=== PATIENT | female | born 1995 | race Caucasian/White ===

== ENCOUNTER 2018-01-10 12:16 | Emergency (ER) | payer SELFPAY ==
[2018-01-10] MEDS ORDERED: DEXAMETHASONE 10 MG/ML VIAL ONE (14:33)
[2018-01-10] MEDS ORDERED: NA CHLORIDE 0.9% 1,000 ML ONE (14:34)
[2018-01-10] MEDS ORDERED: IBUPROFEN 200 MG TAB PO ONE (14:51)
[2018-01-10] MEDS ORDERED: IBUPROFEN 400 MG TAB ONE (14:51)
[2018-01-10 14:52] LABS: Absolute Lymphocytes (CBC) 1.1 K/uL (0.7-4.9); Absolute Monocytes 0.7 K/uL (0.1-1.3); Absolute Neutrophil 3.2 K/uL (1.8-8.0); Basophils % 0.2 % (0-1.3); Hematocrit 40.5 % (36.0-45.0); Lymphocytes % 22.6 % (15.3-44.8); MCH 29.1 pg (27.0-35.0); MCV 88.9 fL (80-100); MPV 8.5 fL (7.6-11.3); Monocytes % 13.2 % (3.3-12.3); RBC Red Blood Cell Count 4.56 M/uL (3.86-4.86)
[2018-01-10 15:12] LABS: Albumin 3.6 g/dL (3.4-5.0); Bilirubin Total 0.4 mg/dL (0.2-1.0); Potassium 3.3 mmol/L (3.5-5.1); Protein, Total 8.1 g/dL (6.4-8.2)
[2018-01-10] MEDS ORDERED: AMOXICILLIN TRIHYDR 250 MG CAP ONE (16:14)
--- NOTE | 2018-01-10 16:29 | ER ---
Nurse's Notes [facility] Name: Liliana Conklin Age: 22 yrs Sex: Female : 1995 Arrival Date: 01/10/2018 Time: 12:19 Bed 22 Private MD: None, None Diagnosis: Acute pharyngitis Presentation: 01/10 12:22 Presenting complaint: Patient states: dizziness, vomiting, sore throat, fever Tmax sv 103.1 started Saturday. Transition of care: patient was not received from another setting of care. Onset of symptoms was January 04, 2018. Risk Assessment: Do you want to hurt yourself or someone else? Patient reports no desire to harm self or others. Care prior to arrival: None. 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 - Social history:: Smoking status: Patient/guardian denies using tobacco. - Ebola Screening: : No symptoms or risks identified at this time. Screenin:23 Abuse screen: Denies threats or abuse. Nutritional screening: No deficits noted. tl3 Tuberculosis screening: No symptoms or risk factors identified. Fall Risk None identified. Assessment: 13:23 General: Appears uncomfortable, well groomed, well developed, well nourished, Behavior tl3 is calm, cooperative, appropriate for age. Pain: Complains of pain in sore throat Pain currently is 9 out of 10 on a pain scale. Neuro: Level of Consciousness is awake, alert, obeys commands, Oriented to person, place, time, situation, Appropriate for age. Cardiovascular: Patient's skin is warm and dry. Respiratory: Airway is patent Respiratory effort is even, unlabored, Respiratory pattern is regular, symmetrical, Breath sounds are clear bilaterally. GI: No signs and/or symptoms were reported involving the gastrointestinal system. : No signs and/or symptoms were reported regarding the genitourinary system. EENT: Throat is reddened has patchy exudate. Derm: No signs and/or symptoms reported regarding the dermatologic system. Musculoskeletal: No signs and/or symptoms reported regarding the musculoskeletal system. 13:26 EENT: pt was seen Saturday at another facility, strep negative, labs within normal tl3 limits, received 2 liters of fluid fever has been ongoing for the last five days, t-max 104.8 on Saturday. 14:53 Reassessment: Patient appears in no apparent distress at this time. No changes from tl3 previously documented assessment. Patient and/or family updated on plan of care and expected duration. Pain level reassessed. Patient is alert, oriented x 3, equal unlabored respirations, skin warm/dry/pink. mom at bedside, no needs at this time. 16:17 Reassessment: Patient appears in no apparent distress at this time. No changes from tl3 previously documented assessment. Patient and/or family updated on plan of care and expected duration. Pain level reassessed. Patient is alert, oriented x 3, equal unlabored respirations, skin warm/dry/pink. pt states that she is feeling much better. 16:45 Reassessment: Patient appears in no apparent distress at this time. No changes from tl3 previously documented assessment. Patient and/or family updated on plan of care and expected duration. Pain level reassessed. Patient is alert, oriented x 3, equal unlabored respirations, skin warm/dry/pink. Vital Signs: 12:23 BP 126 / 80; Pulse 112; Resp 18; Temp 99.4(O); Pulse Ox 98% ; Weight 72.12 kg; Height 5 sv ft. 3 in. (160.02 cm); 14:53 BP 113 / 69; Pulse 68; Resp 18; Temp 99.9(O); Pulse Ox 100% ; tl3 16:17 BP 113 / 69; Pulse 97; Resp 16; Pulse Ox 99% ; tl3 16:45 BP 114 / 60; Pulse 90; Resp 18; Pulse Ox 100% ; tl3 12:23 Body Mass Index 28.17 (72.12 kg, 160.02 cm) sv ED Course: 12:19 Patient arrived in ED. mr 12:20 None, None is Private Physician. mr 12:23 Triage completed. sv 12:25 Arm band placed on right wrist. sv 12:26 Patient placed in waiting room. sv 12:30 Strep swab sent to lab. 3 13:12 Teri Mukherjee, NICCI is Primary Nurse. tl3 13:15 Jaxon Degroot PA is PHCP. [facility] 13:15 Carlos Eduardo Brar MD is Attending Physician. [facility] 13:23 Patient has correct armband on for positive identification. Bed in low position. Side tl3 rails up X 1. Adult w/ patient. 13:23 No provider procedures requiring assistance completed. tl3 14:46 Throat Culture Sent. tl3 16:29 Deepthi Neumann MD is Referral Physician. [facility] Administered Medications: 14:46 Drug: NS 0.9% 1000 ml Route: IV; Rate: 1 bolus; Site: left forearm; Delivery: Primary tl3 tubing; 16:19 Follow up: IV Status: Completed infusion; IV Intake: 1000ml tl3 14:46 Drug: Decadron - Dexamethasone 10 mg Route: IVP; Site: left forearm; tl3 16:19 Follow up: Response: No adverse reaction tl3 14:47 Drug: Motrin 600 mg Route: PO; tl3 16:18 Follow up: Response: No adverse reaction; Temperature is decreased tl3 16:15 Drug: Amoxicillin 1 grams Route: PO; tl3 16:46 Follow up: Response: No adverse reaction tl3 Intake: 16:19 IV: 1000ml; Total: 1000ml. tl3 Outcome: 16:29 Discharge ordered by . yara 16:46 Patient left the ED. tl3 Signatures: Deepthi Bazan, RN RN Jaxon Degroot PA PA [facility] MorleyGeno henry [facility] Teri Mukherjee, RN RN tl3 Corrections: (The following items were deleted from the chart) 16:15 16:15 Amoxicillin 875 mg PO tl3 tl3
--- NOTE | 2018-01-10 16:29 | EDPHYS ---
Physician Documentation [facility] Name: Liliana Conklin Age: 22 yrs Sex: Female : 1995 Arrival Date: 01/10/2018 Time: 12:19 Bed 22 Private MD: None, None ED Physician Carlos Eduardo Brar HPI: 01/10 14:27 This 22 yrs old Female presents to ER via Ambulatory with complaints of [facility] Fever, Sore Throat, Dizziness. 14:27 The patient presents with sore throat. [facility] 14:27 Patient states she developed sore throat, vomiting, and dizziness beginning this past [facility] Saturday. Patient was diagnosed with a viral pharyngitis at [place] [facility]. The patient is currently not on antibiotics. Patient admits to oral sex put states it is protected. Patient states vomiting a dizziness is due to pain. . 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 - Social history:: Smoking status: Patient/guardian denies using tobacco. - Ebola Screening: : No symptoms or risks identified at this time. ROS: 14:27 Eyes: Negative for injury, pain, redness, and discharge, Cardiovascular: Negative for jmm chest pain, palpitations, and edema, Respiratory: Negative for shortness of breath, cough, wheezing, and pleuritic chest pain. 14:27 Skin: Negative for injury, rash, and discoloration. 14:27 Constitutional: Positive for fever. 14:27 Abdomen/GI: Positive for vomiting. 14:27 Neuro: Positive for dizziness. 14:27 All other systems are negative. Exam: 14:27 Head/Face: atraumatic. Chest/axilla: Normal chest wall appearance and motion. jmm Nontender with no deformity. No lesions are appreciated. Cardiovascular: Regular rate and rhythm. No gallops, murmurs, or rubs. Full/Equal distal pulses. Respiratory: Lungs have equal breath sounds bilaterally, clear to auscultation. No rales, rhonchi or wheezes noted. No increased work of breathing, no retractions or nasal flaring. 14:27 Constitutional: The patient appears alert, awake, anxious, uncomfortable. 14:27 ENT: Posterior pharynx: Uvula: midline, erythema, that is moderate, exudate, that is moderate, peritonsillar mass, is not appreciated. 14:27 Neck: ROM/movement: is normal. 14:27 Cardiovascular: Rate: normal, Rhythm: regular. 14:27 Respiratory: the patient does not display signs of respiratory distress, Respirations: normal, Breath sounds: are clear throughout. 14:27 Abdomen/GI: Inspection: abdomen appears normal, Bowel sounds: normal, Palpation: abdomen is soft and non-tender, in all quadrants. 14:27 Back: ROM is normal. 14:27 Musculoskeletal/extremity: ROM: intact in all extremities. 14:27 Skin: Appearance: Color: normal in color. 14:27 Neuro: Orientation: is normal, Mentation: is normal, Memory: is normal. 14:27 Psych: Behavior/mood is pleasant, cooperative. Vital Signs: 12:23 BP 126 / 80; Pulse 112; Resp 18; Temp 99.4(O); Pulse Ox 98% ; Weight 72.12 kg; Height 5 sv ft. 3 in. (160.02 cm); 14:53 BP 113 / 69; Pulse 68; Resp 18; Temp 99.9(O); Pulse Ox 100% ; tl3 16:17 BP 113 / 69; Pulse 97; Resp 16; Pulse Ox 99% ; tl3 16:45 BP 114 / 60; Pulse 90; Resp 18; Pulse Ox 100% ; tl3 12:23 Body Mass Index 28.17 (72.12 kg, 160.02 cm) sv MDM: 14:26 Patient medically screened. [facility] 16:14 Data reviewed: vital signs, nurses notes, lab test result(s). [facility] 16:15 Counseling: I had a detailed discussion with the patient and/or guardian regarding: the [facility] historical points, exam findings, and any diagnostic results supporting the discharge/admit diagnosis, the presence of at least one elevated blood pressure reading (>120/80) during this emergency department visit, lab results, the need for outpatient follow up, to return to the emergency department if symptoms worsen or persist or if there are any questions or concerns that arise at home. Response to treatment: the patient's symptoms have resolved after treatment. ED course: Patient symptoms are relieved in the ED. 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 Advised to follow up with ENT for further evaluation. Otherwise given strict return precautions. . 01/10 12:25 Order name: Strep; Complete Time: 13:54 sv 01/10 12:47 Order name: Throat Culture [facility] 01/10 14:27 Order name: CBC with Diff; Complete Time: 14:55 [facility] 01/10 14:27 Order name: CMP; Complete Time: 15:38 [facility] 01/10 14:27 Order name: [place] Screen Profile; Complete Time: 15:38 [facility] Administered Medications: 14:46 Drug: NS 0.9% 1000 ml Route: IV; Rate: 1 bolus; Site: left forearm; Delivery: Primary tl3 tubing; 16:19 Follow up: IV Status: Completed infusion; IV Intake: 1000ml tl3 14:46 Drug: Decadron - Dexamethasone 10 mg Route: IVP; Site: left forearm; tl3 16:19 Follow up: Response: No adverse reaction tl3 14:47 Drug: Motrin 600 mg Route: PO; tl3 16:18 Follow up: Response: No adverse reaction; Temperature is decreased tl3 16:15 Drug: Amoxicillin 1 grams Route: PO; tl3 16:46 Follow up: Response: No adverse reaction tl3 Disposition: 18:36 Co-signature as Attending Physician, Carlos Eduardo Brar MD. rn Disposition: 01/10/18 16:29 Discharged to Home. Impression: Acute pharyngitis. - Condition is Stable. - Discharge Instructions: Pharyngitis. - Prescriptions for Amoxicillin 875 mg Oral Tablet - take 1 tablet by ORAL route every 12 hours for 10 days; 20 tablet. Tylenol- Codeine #3 300-30 mg Oral Tablet - take 1 tablet by ORAL route every 6 hours As needed; 12 tablet. - Medication Reconciliation Form, Thank You Letter, Antibiotic Education, Prescription Opioid Use form. - Follow up: Deepthi Neumann MD; When: 2 - 3 days; Reason: Continuance of care. Signatures: Dispatcher [employer] Deepthi Lewis, RN Jaxon Rapp PA PA Carlos Eduardo Woods MD MD rn Lowrey, Tammy, RN RN tl3 Corrections: (The following items were deleted from the chart) 16:46 16:29 01/10/2018 16:29 Discharged to Home. Impression: Acute pharyngitis. Condition is tl3 Stable. Forms are Medication Reconciliation Form, Thank You Letter, Antibiotic Education, Prescription Opioid Use. Follow up: Deepthi Neumann; When: 2 - 3 days; Reason: Continuance of care. yara
== END 2018-01-10 16:46 | disposition home or self-care (01) ==
LOC: ER 12:16
DX: J02.9 Acute pharyngitis, unspecified (principal)
CPT/HCPCS: 36415; 80053; 85025; 86308; 87070; 87081; 96361; 96374; 99283; J1100; J7030

== ENCOUNTER 2022-06-12 22:45 | Emergency (ER) | payer SELFPAY ==
--- OUTSIDE RECORDS SUMMARY | 2022-06-12 22:47 | XMS REPORT | Continuity of Care Document ---
:1995 Author Organization [facility] t Address [facility] [place] [address] [place] [id number] Care Team Providers Name Role Phone Unavailable Unavailable Unavailable Problems This patient has no known problems. Allergies, Adverse Reactions, Alerts This patient has no known allergies or adverse reactions. Medications This patient has no known medications. Procedures This patient has no known procedures. Results This patient has no known results.
[2022-06-13 00:25] LABS: SARS-COV-2 RT PCR NEGATIVE (NEGATIVE)
--- NOTE | 2022-06-13 00:37 | ER ---
Nurse's Notes [facility] Name: Liliana Ross Age: 26 yrs Sex: Female : 1995 Arrival Date: 06/12/2022 Time: 22:50 Bed 4 Private MD: Diagnosis: Influenza due to identified novel influenza A virus Presentation: 06/12 23:11 Chief complaint: Patient states: Pt reports cough, sore throat, chills x2 days. kb3 Coronavirus screen: Vaccine status: Patient reports being unvaccinated. Client denies travel out of the [place] in the last 14 days. Ebola Screen: Patient negative for fever greater than or equal to 101.5 degrees Fahrenheit, and additional compatible Ebola Virus Disease symptoms Patient denies exposure to infectious person. Patient denies travel to an Ebola-affected area in the 21 days before illness onset. Initial Sepsis Screen: Does the patient meet any 2 criteria? No. Patient's initial sepsis screen is negative. Does the patient have a suspected source of infection? No. Patient's initial sepsis screen is negative. Risk Assessment: Do you want to hurt yourself or someone else? Patient reports no desire to harm self or others. Onset of symptoms was June 10, 2022. 23:11 Method Of Arrival: Ambulatory 3 23:11 Acuity: TAVIA 4 kb3 Triage Assessment: 23:12 General: Appears in no apparent distress. Behavior is calm, cooperative. Pain: kb3 Complains of pain in uvula, left aspect of posterior pharynx and right aspect of posterior pharynx Pain does not radiate. 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 Last tetanus immunization: unknown. - Social history:: Smoking status: Patient denies any tobacco usage or history of. Screenin:33 Abuse screen: Denies threats or abuse. Denies injuries from another. Nutritional ll3 screening: No deficits noted. Tuberculosis screening: No symptoms or risk factors identified. Fall Risk None identified. Assessment: 23:32 General: Appears comfortable, Behavior is calm, cooperative. Pain: Complains of pain in ll3 right aspect of posterior pharynx and left aspect of posterior pharynx Pain does not radiate. Pain currently is 5 out of 10 on a pain scale. Is continuous. Respiratory: Airway is patent Respiratory effort is even, unlabored, Respiratory pattern is regular, symmetrical, Breath sounds are clear bilaterally. Respiratory: Reports cough that is. EENT: Throat is pink. EENT: Reports pain when swallowing. Derm: Skin is pink, warm \T\ dry. Vital Signs: 23:11 BP 131 / 78; Pulse 84; Resp 20; Temp 98.3; Pulse Ox 97% ; Weight 88 kg; Height 5 ft. 4 kb3 in. (162.56 cm); Pain 7/10; 23:11 Body Mass Index 33.30 (88.00 kg, 162.56 cm) kb3 ED Course: 22:50 Patient arrived in ED. ag3 23:02 Cholo Reyes PA is PHCP. cp 23:02 Cholo Whitley MD is Attending Physician. cp 23:12 Triage completed. kb3 23:12 Arm band placed on right wrist. kb3 23:33 Patient has correct armband on for positive identification. Bed in low position. Call ll3 light in reach. Side rails up X 1. 23:33 No provider procedures requiring assistance completed. ll3 [id number] 00:54 Danii Vazquez, RN is Primary Nurse. vc1 00:57 Patient did not have IV access during this emergency room visit. vc1 Administered Medications: 00:54 Drug: Tamiflu (oseltamivir) 75 mg Route: PO; vc1 00:54 Follow up: Response: No adverse reaction; Medication administered at discharge. vc1 Medication: 00:57 VIS not applicable for this client. vc1 Outcome: 00:37 Discharge ordered by . cp 00:57 Discharged to home ambulatory, with friend. vc1 00:57 Condition: good 00:57 Discharge instructions given to patient, Instructed on discharge instructions, follow up and referral plans. medication usage, Demonstrated understanding of instructions, follow-up care, medications, Prescriptions given X 3. 00:57 Patient left the ED. vc1 Signatures: Cholo Reyes PA PA cp Gomez, Alice ag3 Graham Argueta RN RN ll3 Danii Vazquez, RN RN vc1 Ayaz, Lizeth, RN RN kb3
--- NOTE | 2022-06-13 00:37 | EDPHYS ---
Physician Documentation [facility] Name: Liliana Ross Age: 26 yrs Sex: Female : 1995 Arrival Date: 06/12/2022 Time: 22:50 Bed 4 Private MD: MARI Physician Cholo Whitley HPI: 06/12 23:30 This 26 yrs old Female presents to ER via Ambulatory with complaints of Cough, Sore cp Throat. 23:30 The patient or guardian reports cough, that is intermittent. Onset: The cp symptoms/episode began/occurred 2 day(s) ago. Associated signs and symptoms: Pertinent positives: sore throat, Pertinent negatives: diarrhea, fever, vomiting. 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 Last tetanus immunization: unknown. - Social history:: Smoking status: Patient denies any tobacco usage or history of. ROS: 23:35 Constitutional: Positive for chills, Negative for fever. cp 23:35 Eyes: Negative for injury, pain, redness, and discharge. cp 23:35 ENT: Positive for sore throat, Negative for drainage from ear(s), ear pain, difficulty swallowing, difficulty handling secretions. 23:35 Respiratory: Positive for cough, with no reported sputum, Negative for shortness of breath, wheezing. 23:35 Abdomen/GI: Negative for vomiting, diarrhea, constipation. 23:35 Skin: Negative for rash. 23:35 Neuro: Negative for altered mental status, headache, weakness. 23:35 All other systems are negative. Exam: 23:38 Constitutional: The patient appears in no acute distress, alert, awake, non-toxic, well cp developed, well nourished. 23:38 Head/Face: Normocephalic, atraumatic. cp 23:38 Eyes: Periorbital structures: appear normal, Conjunctiva: normal, no exudate, no injection, Sclera: no appreciated abnormality, Lids and lashes: appear normal, bilaterally. 23:38 ENT: External ear(s): are unremarkable, Ear canal(s): are normal, clear, TM's: dullness, bilaterally, Nose: is normal, Mouth: Lips: moist, Oral mucosa: moist, Posterior pharynx: Airway: no evidence of obstruction, patent, Tonsils: with erythema, no enlargement, no exudate, erythema, that is mild, exudate, is not appreciated. 23:38 Neck: ROM/movement: is normal, is supple, without pain, no range of motions limitations, no meningismus, Lymph nodes: no appreciated lymphadenopathy. 23:38 Chest/axilla: Inspection: normal. 23:38 Cardiovascular: Rate: normal, Rhythm: regular. 23:38 Respiratory: the patient does not display signs of respiratory distress, Respirations: normal, no use of accessory muscles, no retractions, labored breathing, is not present, Breath sounds: are clear throughout, no decreased breath sounds, no stridor, no wheezing. 23:38 Abdomen/GI: Exam negative for discomfort, distension, guarding, Inspection: abdomen appears normal. 23:38 Skin: no rash present. Vital Signs: 23:11 BP 131 / 78; Pulse 84; Resp 20; Temp 98.3; Pulse Ox 97% ; Weight 88 kg; Height 5 ft. 4 kb3 in. (162.56 cm); Pain 7/10; 23:11 Body Mass Index 33.30 (88.00 kg, 162.56 cm) kb3 MDM: 23:10 Patient medically screened. [facility] 06/13 00:00 Differential Diagnosis: Bronchitis Influenza Pharyngitis Otitis Media Viral Syndrome cp Pneumonia. 00:36 Data reviewed: vital signs, nurses notes, lab test result(s). 00:36 Counseling: I had a detailed discussion with the patient and/or guardian regarding: the historical points, exam findings, and any diagnostic results supporting the discharge/admit diagnosis, lab results, to return to the emergency department if symptoms worsen or persist or if there are any questions or concerns that arise at home. 06/12 23:16 Order name: Strep; Complete Time: 00:33 cp 06/12 23:16 Order name: COVID-19/FLU A+B; Complete Time: 00:33 06/13 00:33 Interpretation: Normal except: INFLUENZA A POSITIVE. 06/13 00:24 Order name: Throat Culture EDMS Administered Medications: 00:54 Drug: Tamiflu (oseltamivir) 75 mg Route: PO; vc1 00:54 Follow up: Response: No adverse reaction; Medication administered at discharge. vc1 Disposition Summary: 06/13/22 00:37 Discharge Ordered Location: Home cp Problem: new cp Symptoms: have improved cp Condition: Stable cp Diagnosis - Influenza due to identified novel influenza A virus cp Followup: cp - With: Private Physician - When: 2 - 3 days - Reason: Worsening of condition Discharge Instructions: - Discharge Summary Sheet cp - Influenza, Adult cp Forms: - Medication Reconciliation Form cp - Thank You Letter cp - Antibiotic Education cp - Prescription Opioid Use cp - Work release form vc1 Prescriptions: - Bromfed DM 2-30-10 mg/5 mL Oral syrup - take 10 milliliter by ORAL route every 6 hours; 180 milliliter; Refills: 0, cp Product Selection Permitted - Ibuprofen 800 mg Oral Tablet - take 1 tablet by ORAL route every 8 hours As needed take with food; 30 tablet; cp Refills: 0, Product Selection Permitted - Tamiflu 75 mg Oral Capsule - take 1 tablet by ORAL route every 12 hours for 5 days; 10 tablet; Refills: 0, cp Product Selection Permitted Signatures: Dispatcher [employer] EDMS Cholo Whitley MD MD cha Page, Corey, PA PA cp Danii Vazquez, RN RN vc1 Lizeth Jacome RN RN kb3
[2022-06-13] MEDS ORDERED: OSELTAMIVIR 75 MG CAP ONE (00:49)
[2022-06-13 01:02] VITALS: BP 131/78; TEMP 98.3; O2SAT 97
== END 2022-06-13 00:57 | disposition home or self-care (01) ==
LOC: ER 22:45
DX: J10.1 Influenza due to other identified influenza virus with other respiratory manifestations (principal); Z20.822 Contact with and (suspected) exposure to COVID-19
CPT/HCPCS: 0240U; 87070; 87081; 99283

== ENCOUNTER → 2023-08-21 | Emergency (ER) | payer OTHER ==
--- OUTSIDE RECORDS SUMMARY | 2023-08-21 15:43 | XMS REPORT | Continuity of Care Document ---
Author Name Unknown Address [address] [facility] [address] [place] [address] [facility] thconnect Address [address] 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 Name Role Phone PCP, PATIENT DOES NOT HAVE A Primary Care Physic richardson [place] Mcdowell Attending Clinician [phone] Unknown, Attending Attending Clinician Unavailab RALEIGH Brown Attending Clinician Unavailable Doctor Unassigned, [place] Attending Clinician U navailable Payers Payer Name Policy Type Policy Number Effective Date Expirati on Date Source Allergies, Adverse Reactions, Alerts Allergy Name Allergy Type Status Severity Reaction(s) Onset Date Inactive Date Treating Clinician Comments Source NO KNOWN ALLERGIE S Drug Class Active [facility] Social History Social Habit Start Date Stop Date Quantity Comments Source Exposure to SARS-CoV-2 (event) 2022-08-16 00:00:00 2022-08-26 18:17:00 Not sure [facility] Tobacco use and exposure 2022-08-26 00:00:00 2022-08-26 00:00:00 Smokeless tobacco non-user [facility] Sex Assigned At 1995 00:00:00 1995 00:00:00 [facility] Smoking Status Start Date Stop Date Source Tobacco smoking consumption unknown [facility] Never smoked tobacco [facility] Medications Ordered Medication Name Filled Medication Name Start Date Stop Date Current Medication? Ordering Clinician Indication Dosage Frequency Signature (SIG) Comments Components Source cetirizine 10 mg tablet 08-26 00:00: 00 09-11 05:59 :00 No [id number] 10mg Take 1 tablet by mouth in the morning for 15 days. [facility] amoxicillin -clavulanat e (AUGMENTIN) 875-125 mg per tablet 2 00:00: 00 09-06 05:59 :00 No [id number] 1{tbl} Take 1 tablet by mouth in the morning and 1 tablet in the evening. Do all this for 10 days. [facility] Vital Signs Vital Name Observation Time Observation Value Comments S nehemiah Systolic blood pressure 2022-08-27 00:21:00 121 mm[Hg] [facility] Diastolic blood pressure 2022-08-27 00:21:00 83 mm[Hg] [facility] Heart rate 2022-08-27 00:21:00 79 /min [facility] Body temperature 2022-08-27 00:21:00 36.89 Elida [facility] Respiratory rate 2022-08-27 00:21:00 18 /min [facility] Body height 2022-08-27 00:21:00 162.6 cm [facility] Body weight 2022-08-27 00:21:00 87 kg [facility] BMI 2022-08-27 00:21:00 32.92 kg/m2 [facility] Oxygen saturation in Arterial blood by Pulse oximetry 2022-08-27 00:21:00 98 /min [facility] Procedures Procedure Date / Time Performed Performing Clinicia n Source ASSIGNMENT OF BENEFITS 2022-08-27 00:16:22 Docto r Unassigned, [place] [facility] Encounters Start Date/Time End Date/Time Encounter Type Admission Type Attending Clinicians Care Facility Care Department Encounter ID Source 2022-08-26 18:20:00 2022-08-26 18:40:00 Urgent Care [place] Teixeira Unknown, Attending [facility] [id number] [facility] 2022-08-26 18:20:00 2022-08-26 18:20:00 Outpatient [facility] [id number] [facility] 2022-08-26 00:00:00 2022-08-26 00:00:00 Orders Only Doctor Unassigned, [place] [facility] [id number] [facility]
[2023-08-21 16:23] LABS: SARS-CoV-2 Antigen Rapid Res Negative (Negative)
--- NOTE | 2023-08-21 16:58 | ER ---
Nurse's Notes [facility] Name: Liliana Ross Age: 27 yrs Sex: Female : 1995 Arrival Date: 08/21/2023 Time: 15:40 Bed IW1 Private MD: Diagnosis: Acute pharyngitis, unspecified Presentation: 08/21 15:58 Chief complaint: Patient states: 1 DAY SORE THROAT, CHILLS, GRIJALVA. Coronavirus screen: At bp this time, the client does not indicate any symptoms associated with coronavirus-19. Ebola Screen: No symptoms or risks identified at this time. Initial Sepsis Screen: Does the patient meet any 2 criteria? HR > 90 bpm. No. Patient's initial sepsis screen is negative. Does the patient have a suspected source of infection? No. Patient's initial sepsis screen is negative. Risk Assessment: Do you want to hurt yourself or someone else? Patient reports no desire to harm self or others. Onset of symptoms was August 21, 2023. 15:58 Method Of Arrival: Ambulatory bp 15:58 Acuity: TAVIA 4 bp Triage Assessment: 16:00 General: Appears in no apparent distress. ill, Behavior is cooperative, appropriate for bp age, anxious. Pain: Complains of pain in neck. EENT: Reports pain when swallowing. 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 - Social history:: Smoking status: Patient denies any tobacco usage or history of. - Family history:: not pertinent. - Hospitalizations: : No recent hospitalization is reported. Screenin:00 [facility] ED Fall Risk Assessment (Adult) History of falling in the last 3 months, bp including since admission No falls in past 3 months (0 pts). Abuse screen: Denies threats or abuse. Denies injuries from another. Nutritional screening: No deficits noted. Tuberculosis screening: No symptoms or risk factors identified. Assessment: 17:09 Reassessment: No changes from previously documented assessment. Patient and/or family ll1 updated on plan of care and expected duration. Pain level reassessed. 17:09 Respiratory: Airway is patent Respiratory effort is even, unlabored, Breath sounds are ll1 clear bilaterally. EENT: Throat is reddened. Vital Signs: 15:58 BP 154 / 84; Pulse 132; Resp 18; Temp 98.9; Pulse Ox 98% ; Weight 95.25 kg; Height 5 bp ft. 4 in. ; 17:09 BP 142 / 90; Pulse 108; Resp 17; Temp 99.4; Pulse Ox 98% ; ll1 15:58 Body Mass Index 36.05 (95.25 kg, 162.56 cm) bp ED Course: 15:41 Patient arrived in ED. rg4 15:51 Carlos Eduardo Brar MD is Attending Physician. rn 16:00 Triage completed. bp 16:00 Arm band placed on. bp 16:00 Patient has correct armband on for positive identification. bp 17:09 No provider procedures requiring assistance completed. Patient did not have IV access ll1 during this emergency room visit. 17:10 Provided Education on: n/a. ll1 Administered Medications: No medications were administered Medication: 17:10 VIS not applicable for this client. ll1 Outcome: 16:57 Discharge ordered by . rn 17:09 Discharged to home ambulatory, ll1 17:09 Condition: stable 17:09 Discharge instructions given to patient, Instructed on discharge instructions, follow up and referral plans. medication usage, Demonstrated understanding of instructions, follow-up care, medications, Prescriptions given X 1, 17:10 Patient left the ED. ll1 Signatures: Carlos Eduardo Brar MD MD rn Garcia, Rubi rg4 Robert Johnson RN RN bp Lewis, Lynsay, RN RN ll1
--- NOTE | 2023-08-21 16:58 | EDPHYS ---
Physician Documentation [facility] Name: Liliana Ross Age: 27 yrs Sex: Female : 1995 Arrival Date: 08/21/2023 Time: 15:40 Bed IW1 Private MD: ED Physician Carlos Eduardo Brar HPI: 08/21 16:52 This 27 yrs old Female presents to ER via Ambulatory with complaints of Sore Throat, rn Fever. 16:52 The patient presents with sore throat. The patient describes throat pain as raw. Onset: rn The symptoms/episode began/occurred this morning. Severity of symptoms: At their worst the symptoms were mild, in the emergency department the symptoms are unchanged. Modifying factors: The symptoms are alleviated by nothing, the symptoms are aggravated by nothing. The patient has not experienced similar symptoms in the past. Patient reports this morning started with sore throat, subjective fever, chills, myalgias, headache, malaise. No shortness of breath. No abdominal pain. No vomiting or diarrhea. Reports multiple sick contacts. 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 - Social history:: Smoking status: Patient denies any tobacco usage or history of. - Family history:: not pertinent. - Hospitalizations: : No recent hospitalization is reported. ROS: 16:52 Constitutional: Positive for fever and chills ENT: Positive for nasal drainage and sore rn throat Neck: Negative for injury, pain, and swelling, Cardiovascular: Negative for chest pain, palpitations, and edema, Respiratory: Negative for shortness of breath, cough, wheezing, and pleuritic chest pain, Abdomen/GI: Negative for abdominal pain, nausea, vomiting, diarrhea, and constipation, Back: Negative for injury and pain, MS/Extremity: Negative for injury and deformity, Skin: Negative for injury, rash, and discoloration, Neuro: Positive for headache and generalized weakness and malaise Exam: 16:52 Constitutional: This is a well developed, well nourished patient who is awake, alert, rn and in no acute distress. Head/Face: Normocephalic, atraumatic. Eyes: Pupils equal round and reactive to light, extra-ocular motions intact. Lids and lashes normal. Conjunctiva and sclera are non-icteric and not injected. Cornea within normal limits. Periorbital areas with no swelling, redness, or edema. ENT: Mild pharyngeal erythema, moist mucous membranes, uvula midline, no exudate, no peritonsillar abscess Neck: No Meningismus. Cardiovascular: Tachycardic, regular. No pulse deficits. Respiratory: No increased work of breathing, no retractions or nasal flaring. Abdomen/GI: Soft, non-tender MS/ Extremity: Pulses equal, no cyanosis. Neuro: Awake and alert, GCS 15 Vital Signs: 15:58 BP 154 / 84; Pulse 132; Resp 18; Temp 98.9; Pulse Ox 98% ; Weight 95.25 kg; Height 5 bp ft. 4 in. ; 17:09 BP 142 / 90; Pulse 108; Resp 17; Temp 99.4; Pulse Ox 98% ; ll1 15:58 Body Mass Index 36.05 (95.25 kg, 162.56 cm) bp MDM: 15:51 Patient medically screened. rn 16:57 Differential diagnosis: group A strep tonsillitis, laryngitis, pharyngitis, upper rn respiratory infection, uvulitis, viral syndrome. Data reviewed: vital signs, nurses notes, lab test result(s), and as a result, I will discharge patient. Counseling: I had a detailed discussion with the patient and/or guardian regarding the historical points, exam findings, and any diagnostic results supporting the discharge/admit diagnosis, lab results, the need for outpatient follow up, to return to the emergency department if symptoms worsen or persist or if there are any questions or concerns that arise at home. Special discussion: I discussed with the patient/guardian in detail that at this point there is no indication for admission to the hospital. It is understood, however, that if the symptoms persist or worsen the patient needs to return immediately for re-evaluation. 08/21 15:51 Order name: Flu; Complete Time: 16:57 rn 08/21 15:51 Order name: SARS RAPID; Complete Time: 16:57 rn 08/21 15:51 Order name: Strep rn 08/21 16:28 Order name: Throat Culture EDMS Administered Medications: No medications were administered Disposition Summary: 08/21/23 16:57 Discharge Ordered Notes: Location: Home rn Problem: new rn Symptoms: have improved rn Condition: Stable rn Diagnosis - Acute pharyngitis, unspecified rn Followup: rn - With: Private Physician - When: As needed - Reason: Recheck today's complaints, Re-evaluation by your physician Discharge Instructions: - Discharge Summary Sheet rn - Pharyngitis rn - Sore Throat rn Forms: - Medication Reconciliation Form rn - Thank You Letter 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 Day 2, 3, 4 , 5 take one (1) tablet once daily.; 6 tablet; Refills: 0, Product Selection Permitted Signatures: Dispatcher [employer] Carlos Eduardo Machado MD MD rn Peltier, Brian, RN RN bp
[2023-08-21 19:41] VITALS: O2SAT 98
[2023-08-21 19:54] VITALS: BP 142/90; TEMP 99.4
== END ==
LOC: ER 15:40
DX: J02.9 Acute pharyngitis, unspecified (principal); R51.9 Headache, unspecified; R53.1 Weakness; R53.81 Other malaise; Z11.52 Encounter for screening for COVID-19
CPT/HCPCS: 36415; 87070; 87081; 87804; 87811